=== PATIENT | female | born 1955 | race Caucasian/White ===

== ENCOUNTER 2018-04-24 15:17 | Observation (INO) | payer MEDICARE, MEDICAID ==
[2018-04-24] MEDS: NA PHOSPHATE/BIPHOS 133 ML ENEMA PR
[2018-04-24] MEDS ORDERED: ACETAMINOPHEN 325 MG TAB PO (15:30)
[2018-04-24 16:15] LABS: ADD MAN DIFF? NO
[2018-04-24 16:19] LABS: BASOPHILS % 0.6 % (0.0-2.0); EOSINOPHILS # 0.1 10^3/ul (0.0-0.5); EOSINOPHILS % 1.1 % (0.0-7.0); HEMATOCRIT 34.8 % (37.0-47.0); HEMOGLOBIN 11.5 g/dl (12.0-16.0); LYMPHOCYTES # 0.9 10^3/ul (0.8-2.9); MEAN CORPUSCULAR HEMOGLOBIN 32.9 pg (29.0-33.0); MEAN CORPUSCULAR VOLUME 99.4 fl (82.0-101.0); MONOCYTE # 0.6 10^3/ul (0.3-0.9); MONOCYTES % 8.6 % (0.0-11.0); NEUTROPHILS % 75.5 % (39.0-77.0); PLATELET COUNT 224 10^3/UL (140-415); RED CELL DISTRIBUTION WIDTH 13.8 % (11.5-14.5)
[2018-04-24 16:19] LABS: WHITE BLOOD COUNT 6.6 10^3/ul (4.8-10.8)
[2018-04-24 16:32] LABS: INR 1.11; PROTIME 14.5 Sec (11.9-14.9); PT RATIO 1.1
[2018-04-24] MEDS: morphine 4 MG/ML VIAL IV (16:34)
[2018-04-24] MEDS: ONDANSETRON 4 MG INJ IV (16:34)
[2018-04-24 16:35] LABS: LACTIC ACID 1.8 mmol/L (0.5-2.0)
[2018-04-24 16:36] LABS: ANION GAP 25 (8-16); BLOOD UREA NITROGEN 54 mg/dl (7-20); CALCIUM 7.9 mg/dl (8.4-10.2); CARBON DIOXIDE 32 mmol/L (21-31); CHLORIDE 90 mmol/L (97-110); CREATININE 7.95 mg/dl (0.44-1.00); GLUCOSE 169 mg/dl (70-220); POTASSIUM 3.8 mmol/L (3.5-5.1); SODIUM 143 mmol/L (135-144)
[2018-04-24 16:47] LABS: TROPONIN-I 0.097 ng/ml (0.000-0.120)
[2018-04-24 18:57] LABS: LACTIC ACID 1.4 mmol/L (0.5-2.0)
[2018-04-24 19:28] LABS: TROPONIN-I 0.092 ng/ml (0.000-0.120)
[2018-04-24] MEDS ORDERED: GLUCOSE GEL 15 GRAM TUBE PO ×2 (20:00)
[2018-04-24] MEDS ORDERED: GLUCAGON 1 MG INJ IM (20:00)
[2018-04-24] MEDS ORDERED: GLUCOSE GEL 15 GRAM TUBE BUCCAL (20:00)
[2018-04-24] MEDS ORDERED: DEXTROSE 50% 50 ML SYRINGE IV ×2 (20:00)
[2018-04-24] MEDS: LACTULOSE 30ML CUP GTB (20:37)
[2018-04-24] MEDS: INSULIN ASPART [NOVOLOG] 3 ML PEN SC (20:37)
[2018-04-24 23:21] LABS: LACTIC ACID 3.8 mmol/L (0.5-2.0)
[2018-04-25] MEDS: LACTULOSE 30ML CUP GTB (01:00)
[2018-04-25] MEDS ORDERED: ASPIRIN 81 MG TAB PO (02:00)
[2018-04-25] MEDS ORDERED: AMIODARONE 200 MG TAB PO ×2 (02:30→09:00)
[2018-04-25] MEDS: morphine 2 MG INJ IV ×3 (03:12→12:57)
[2018-04-25] MEDS: PANTOPRAZOLE (EC) 40 MG TAB PO (06:00)
[2018-04-25 07:07] LABS: ADD MAN DIFF? NO
[2018-04-25 07:15] LABS: BASOPHILS % 0.5 % (0.0-2.0); EOSINOPHILS # 0.1 10^3/ul (0.0-0.5); EOSINOPHILS % 1.2 % (0.0-7.0); HEMATOCRIT 32.8 % (37.0-47.0); HEMOGLOBIN 10.8 g/dl (12.0-16.0); LYMPHOCYTES # 1.9 10^3/ul (0.8-2.9); LYMPHOCYTES % 22.4 % (15.0-51.0); MEAN CORPUSCULAR HEMOGLOBIN 32.9 pg (29.0-33.0); MEAN CORPUSCULAR HGB CONC 32.9 g/dl (32.0-37.0); MEAN PLATELET VOLUME 10.4 fl (7.4-10.4); MONOCYTE # 1.2 10^3/ul (0.3-0.9); MONOCYTES % 13.7 % (0.0-11.0); NEUTROPHIL # 5.2 10^3/ul (1.6-7.5); PLATELET COUNT 220 10^3/UL (140-415); RED BLOOD COUNT 3.28 10^6/ul (4.20-5.40); RED CELL DISTRIBUTION WIDTH 13.9 % (11.5-14.5)
[2018-04-25 07:15] LABS: WHITE BLOOD COUNT 8.4 10^3/ul (4.8-10.8)
[2018-04-25] MEDS: INSULIN ASPART [NOVOLOG] 3 ML PEN SC ×4 (07:42→20:59)
[2018-04-25] MEDS: INSULIN GLARGINE [LANTus] (100 UNITS/ML) SYG SC ×2 (07:42→20:00)
[2018-04-25 07:45] LABS: ALANINE AMINOTRANSFERASE 30 IU/L (13-69); ALBUMIN 3.9 g/dl (3.3-4.9); ALKALINE PHOSPHATASE 53 IU/L (42-121); ANION GAP 23 (8-16); ASPARTATE AMINO TRANSFERASE 30 IU/L (15-46); BILIRUBIN,INDIRECT 0.1 mg/dl (0-1.1); BILIRUBIN,TOTAL 0.1 mg/dl (0.2-1.3); BLOOD UREA NITROGEN 53 mg/dl (7-20); CALCIUM 7.4 mg/dl (8.4-10.2); CARBON DIOXIDE 32 mmol/L (21-31); CHLORIDE 90 mmol/L (97-110); CREATININE 8.39 mg/dl (0.44-1.00); GLUCOSE 150 mg/dl (70-220); POTASSIUM 3.5 mmol/L (3.5-5.1); SODIUM 141 mmol/L (135-144); TOTAL PROTEIN 6.5 g/dl (6.1-8.1)
[2018-04-25 07:55] LABS: TROPONIN-I 0.101 ng/ml (0.000-0.120)
[2018-04-25] MEDS ORDERED: INSULIN GLARGINE [LANTus] (100 UNITS/ML) SYG SC (08:00)
[2018-04-25 08:13] LABS: HEPATITIS B SURFACE ANTIGEN NEGATIVE (NEGATIVE)
[2018-04-25 08:30] LABS: HEPATITIS B SURFACE ANTIBODY POSITIVE (NEGATIVE)
[2018-04-25] MEDS: LABETALOL 200 MG TAB PO ×2 (09:00→20:58)
[2018-04-25] MEDS: ASPIRIN 81 MG TAB PO (09:14)
[2018-04-25] MEDS: DULOXETINE 30 MG CAP DR PO (09:14)
[2018-04-25] MEDS: APIXABAN 5 MG TABLET PO ×2 (09:14→20:58)
[2018-04-25] MEDS: AMIODARONE 200 MG TAB PO (09:15)
[2018-04-25] MEDS: ONDANSETRON 4 MG INJ IV (09:23)
[2018-04-25 11:12] LABS: TROPONIN-I 0.087 ng/ml (0.000-0.120)
[2018-04-25] MEDS: [UNRECOGNIZED DRUG - REMARK] XX ×2 (12:43→20:59)
[2018-04-25] MEDS: LACTULOSE 30ML CUP PO ×5 (12:57→20:58)
[2018-04-25 13:57] LABS: CARCINOEMBRYONIC ANTIGEN 3.8 ng/ml (0.0-5.0)
[2018-04-25] MEDS ORDERED: ALBUMIN HUMAN 25% 100 ML IV (19:00)
[2018-04-25] MEDS: ISOSORBIDE DINITRATE 10 MG TAB PO (20:58)
[2018-04-25] MEDS: ATORVASTATIN 40 MG TAB PO (20:58)
[2018-04-25] MEDS ORDERED: BARIUM SULF 2% 450 ML BTL (BERRY SMOOTHIE) PO (23:00)
[2018-04-25] MEDS ORDERED: IOHEXOL 14.3 MG(I)/ML (ADULT) BTL PO (23:00)
[2018-04-25] MEDS ORDERED: IOHEXOL 10 MG(I)/ML (PED) BTL PO (23:00)
[2018-04-26] MEDS: LACTULOSE 30ML CUP PO ×11 (01:17→18:49)
[2018-04-26] MEDS: [UNRECOGNIZED DRUG - REMARK] XX ×3 (05:00→21:00)
[2018-04-26] MEDS: PANTOPRAZOLE (EC) 40 MG TAB PO (06:00)
[2018-04-26 06:44] LABS: ADD MAN DIFF? NO
[2018-04-26 07:00] LABS: WHITE BLOOD COUNT 6.6 10^3/ul (4.8-10.8)
[2018-04-26 07:00] LABS: BASOPHIL # 0.1 10^3/ul (0.0-0.1); BASOPHILS % 0.8 % (0.0-2.0); EOSINOPHILS # 0.2 10^3/ul (0.0-0.5); EOSINOPHILS % 2.9 % (0.0-7.0); HEMATOCRIT 38.4 % (37.0-47.0); HEMOGLOBIN 12.2 g/dl (12.0-16.0); LYMPHOCYTES # 1.1 10^3/ul (0.8-2.9); LYMPHOCYTES % 16.5 % (15.0-51.0); MEAN CORPUSCULAR HEMOGLOBIN 33.2 pg (29.0-33.0); MEAN CORPUSCULAR HGB CONC 31.8 g/dl (32.0-37.0); MEAN CORPUSCULAR VOLUME 104.3 fl (82.0-101.0); MEAN PLATELET VOLUME 10.1 fl (7.4-10.4); MONOCYTE # 0.9 10^3/ul (0.3-0.9); MONOCYTES % 14.2 % (0.0-11.0); NEUTROPHIL # 4.3 10^3/ul (1.6-7.5); NEUTROPHILS % 65.4 % (39.0-77.0); PLATELET COUNT 212 10^3/UL (140-415); RED BLOOD COUNT 3.68 10^6/ul (4.20-5.40); RED CELL DISTRIBUTION WIDTH 13.4 % (11.5-14.5)
[2018-04-26 07:37] LABS: ALANINE AMINOTRANSFERASE 25 IU/L (13-69); ALBUMIN 4.3 g/dl (3.3-4.9); ALBUMIN/GLOBULIN RATIO 1.26; ALKALINE PHOSPHATASE 57 IU/L (42-121); ANION GAP 20 (8-16); ASPARTATE AMINO TRANSFERASE 34 IU/L (15-46); BILIRUBIN,INDIRECT 0.2 mg/dl (0-1.1); BILIRUBIN,TOTAL 0.2 mg/dl (0.2-1.3); BLOOD UREA NITROGEN 23 mg/dl (7-20); CALCIUM 8.3 mg/dl (8.4-10.2); CARBON DIOXIDE 28 mmol/L (21-31); CHLORIDE 99 mmol/L (97-110); CK-MB 5.09 ng/ml (0.0-2.4); CREATININE 5.83 mg/dl (0.44-1.00); GLUCOSE 127 mg/dl (70-220); POTASSIUM 3.9 mmol/L (3.5-5.1); SODIUM 143 mmol/L (135-144); TOTAL PROTEIN 7.7 g/dl (6.1-8.1); TROPONIN-I 0.072 ng/ml (0.000-0.120)
[2018-04-26 07:48] LABS: CHOL/HDL RATIO 4.4 RATIO; CK INDEX 1.3; CREATINE KINASE 405 IU/L (23-200); HDL CHOLESTEROL 42 mg/dl (35-98); LDL CHOLESTEROL,CALCULATED 106 mg/dl; TRIGLYCERIDES 199 mg/dl (0-149)
[2018-04-26 07:48] LABS: CHOLESTEROL 188 mg/dl (100-200)
[2018-04-26] MEDS: INSULIN ASPART [NOVOLOG] 3 ML PEN SC ×4 (07:55→20:55)
[2018-04-26 08:07] LABS: PHOSPHORUS 7.8 mg/dl (2.5-4.9)
[2018-04-26] MEDS: AMIODARONE 200 MG TAB PO (09:00)
[2018-04-26] MEDS: ASPIRIN 81 MG TAB PO (09:30)
[2018-04-26] MEDS: LABETALOL 200 MG TAB PO ×2 (09:31→20:55)
[2018-04-26] MEDS: ISOSORBIDE DINITRATE 10 MG TAB PO ×3 (09:31→20:55)
[2018-04-26] MEDS: APIXABAN 5 MG TABLET PO ×2 (09:32→20:33)
[2018-04-26] MEDS: DULOXETINE 30 MG CAP DR PO (09:32)
[2018-04-26] MEDS: INSULIN GLARGINE [LANTus] (100 UNITS/ML) SYG SC ×2 (09:34→20:00)
[2018-04-26] MEDS: NA PHOSPHATE/BIPHOS 133 ML ENEMA PR (12:24)
[2018-04-26] MEDS ORDERED: PEG/ELECTROLYTES 4L BTL PO (13:00)
[2018-04-26 14:55] LABS: TROPONIN-I 0.063 ng/ml (0.000-0.120)
[2018-04-26] MEDS: MAGNESIUM CITRATE 300 ML BTL PO (14:58)
[2018-04-26] MEDS: POLYETHYLENE GLYCOL 17 GM PACKET PO ×3 (14:58→20:33)
[2018-04-26] MEDS: ATORVASTATIN 40 MG TAB PO (20:33)
[2018-04-26] MEDS: ONDANSETRON 4 MG INJ IV (20:39)
[2018-04-26] MEDS ORDERED: POLYETHYLENE GLYCOL 17 GM PACKET PO (21:00)
[2018-04-27] MEDS: POLYETHYLENE GLYCOL 17 GM PACKET PO (01:30)
[2018-04-27] MEDS: clonAZEPAM 0.5 MG TAB PO (02:13)
[2018-04-27] MEDS: morphine LIQ (10 MG/5 ML) CUP PO (02:13)
[2018-04-27] MEDS: [UNRECOGNIZED DRUG - REMARK] XX (05:00)
[2018-04-27] MEDS: PANTOPRAZOLE (EC) 40 MG TAB PO (05:37)
[2018-04-27 06:34] LABS: ADD MAN DIFF? NO
[2018-04-27 06:39] LABS: WHITE BLOOD COUNT 6.7 10^3/ul (4.8-10.8)
[2018-04-27 06:39] LABS: BASOPHILS % 0.6 % (0.0-2.0); EOSINOPHILS # 0.2 10^3/ul (0.0-0.5); EOSINOPHILS % 2.9 % (0.0-7.0); HEMATOCRIT 37.4 % (37.0-47.0); HEMOGLOBIN 11.7 g/dl (12.0-16.0); LYMPHOCYTES # 1.3 10^3/ul (0.8-2.9); LYMPHOCYTES % 19.4 % (15.0-51.0); MEAN CORPUSCULAR HEMOGLOBIN 32.3 pg (29.0-33.0); MEAN CORPUSCULAR HGB CONC 31.3 g/dl (32.0-37.0); MEAN CORPUSCULAR VOLUME 103.3 fl (82.0-101.0); MEAN PLATELET VOLUME 10.5 fl (7.4-10.4); MONOCYTES % 14.9 % (0.0-11.0); NEUTROPHIL # 4.1 10^3/ul (1.6-7.5); PLATELET COUNT 206 10^3/UL (140-415); RED BLOOD COUNT 3.62 10^6/ul (4.20-5.40); RED CELL DISTRIBUTION WIDTH 13.4 % (11.5-14.5)
[2018-04-27 07:00] LABS: ANION GAP 21 (8-16); BLOOD UREA NITROGEN 31 mg/dl (7-20); CALCIUM 8.1 mg/dl (8.4-10.2); CARBON DIOXIDE 29 mmol/L (21-31); CHLORIDE 96 mmol/L (97-110); CREATININE 6.94 mg/dl (0.44-1.00); GLUCOSE 102 mg/dl (70-220); PHOSPHORUS 9.5 mg/dl (2.5-4.9); POTASSIUM 3.7 mmol/L (3.5-5.1); SODIUM 142 mmol/L (135-144)
[2018-04-27 07:28] LABS: POTASSIUM 3.8 mmol/L (3.5-5.1)
[2018-04-27] MEDS: INSULIN ASPART [NOVOLOG] 3 ML PEN SC ×3 (07:55→20:59)
[2018-04-27] MEDS: INSULIN GLARGINE [LANTus] (100 UNITS/ML) SYG SC ×2 (08:00→20:54)
[2018-04-27] MEDS: AMIODARONE 200 MG TAB PO (09:00)
[2018-04-27] MEDS: ASPIRIN 81 MG TAB PO (09:00)
[2018-04-27] MEDS: ISOSORBIDE DINITRATE 10 MG TAB PO ×3 (09:00→21:00)
[2018-04-27] MEDS: APIXABAN 5 MG TABLET PO ×2 (09:00→20:49)
[2018-04-27] MEDS: LABETALOL 200 MG TAB PO ×2 (09:00→21:00)
[2018-04-27] MEDS: DULOXETINE 30 MG CAP DR PO (09:00)
[2018-04-27] MEDS: CALCIUM ACETATE 667 MG CAP PO ×2 (11:50→17:55)
[2018-04-27] MEDS: BARIUM SULF 2% 450 ML BTL (BERRY SMOOTHIE) PO (19:00)
[2018-04-27] MEDS: FENTAnyl 50 MCG/ML VIAL (20:00)
[2018-04-27] MEDS: PROPOFOL 20 ML (20:00)
[2018-04-27] MEDS: MIDAZOLAM 1 MG/ML 2 ML INJ (20:00)
[2018-04-27] MEDS: SOD CHLORIDE 0.9% 100 ML (20:05)
[2018-04-27] MEDS: IODIXANOL LOCM 100 ML BTL (20:05)
[2018-04-27] MEDS: ATORVASTATIN 40 MG TAB PO (20:49)
[2018-04-27 23:50] LABS: ALANINE AMINOTRANSFERASE 30 IU/L (13-69); ALBUMIN 4.7 g/dl (3.3-4.9); ALBUMIN/GLOBULIN RATIO 1.23; ALKALINE PHOSPHATASE 76 IU/L (42-121); ANION GAP 20 (8-16); ASPARTATE AMINO TRANSFERASE 35 IU/L (15-46); BILIRUBIN,INDIRECT 0.2 mg/dl (0-1.1); BILIRUBIN,TOTAL 0.2 mg/dl (0.2-1.3); BLOOD UREA NITROGEN 19 mg/dl (7-20); CALCIUM 9.1 mg/dl (8.4-10.2); CARBON DIOXIDE 29 mmol/L (21-31); CHLORIDE 93 mmol/L (97-110); CREATININE 5.32 mg/dl (0.44-1.00); GLUCOSE 287 mg/dl (70-220); POTASSIUM 3.7 mmol/L (3.5-5.1); SODIUM 138 mmol/L (135-144); TOTAL PROTEIN 8.5 g/dl (6.1-8.1)
[2018-04-28] MEDS: morphine LIQ (10 MG/5 ML) CUP PO (01:21)
[2018-04-28] MEDS: PANTOPRAZOLE (EC) 40 MG TAB PO (06:00)
[2018-04-28] MEDS: INSULIN ASPART [NOVOLOG] 3 ML PEN SC ×4 (07:55→20:58)
[2018-04-28] MEDS: ISOSORBIDE DINITRATE 10 MG TAB PO ×3 (09:00→21:00)
[2018-04-28] MEDS: LABETALOL 200 MG TAB PO ×2 (09:00→20:59)
[2018-04-28] MEDS: AMIODARONE 200 MG TAB PO (09:26)
[2018-04-28] MEDS: ASPIRIN 81 MG TAB PO (09:26)
[2018-04-28] MEDS: DULOXETINE 30 MG CAP DR PO (09:27)
[2018-04-28] MEDS: CALCIUM ACETATE 667 MG CAP PO ×3 (09:27→18:03)
[2018-04-28] MEDS: APIXABAN 5 MG TABLET PO ×2 (09:27→20:58)
[2018-04-28] MEDS: INSULIN GLARGINE [LANTus] (100 UNITS/ML) SYG SC ×2 (09:37→20:54)
[2018-04-28 11:27] LABS: ADD MAN DIFF? NO
[2018-04-28 11:30] LABS: BASOPHILS % 0.3 % (0.0-2.0); EOSINOPHILS # 0.2 10^3/ul (0.0-0.5); HEMATOCRIT 39.4 % (37.0-47.0); HEMOGLOBIN 12.6 g/dl (12.0-16.0); LYMPHOCYTES # 1.3 10^3/ul (0.8-2.9); LYMPHOCYTES % 13.7 % (15.0-51.0); MEAN CORPUSCULAR HEMOGLOBIN 32.5 pg (29.0-33.0); MEAN CORPUSCULAR VOLUME 101.5 fl (82.0-101.0); MEAN PLATELET VOLUME 10.8 fl (7.4-10.4); MONOCYTE # 1.2 10^3/ul (0.3-0.9); MONOCYTES % 12.5 % (0.0-11.0); NEUTROPHILS % 71.1 % (39.0-77.0); PLATELET COUNT 233 10^3/UL (140-415); RED BLOOD COUNT 3.88 10^6/ul (4.20-5.40); RED CELL DISTRIBUTION WIDTH 13.4 % (11.5-14.5)
[2018-04-28 11:30] LABS: WHITE BLOOD COUNT 9.8 10^3/ul (4.8-10.8)
[2018-04-28 11:53] LABS: ANION GAP 18 (8-16); BLOOD UREA NITROGEN 31 mg/dl (7-20); CALCIUM 8.8 mg/dl (8.4-10.2); CARBON DIOXIDE 29 mmol/L (21-31); CHLORIDE 96 mmol/L (97-110); CREATININE 6.64 mg/dl (0.44-1.00); GLUCOSE 199 mg/dl (70-220); POTASSIUM 4.1 mmol/L (3.5-5.1); SODIUM 139 mmol/L (135-144)
[2018-04-28] MEDS: ATORVASTATIN 40 MG TAB PO (20:58)
[2018-04-29] MEDS: morphine LIQ (10 MG/5 ML) CUP PO (02:25)
[2018-04-29] MEDS: PANTOPRAZOLE (EC) 40 MG TAB PO (06:33)
[2018-04-29] MEDS: INSULIN ASPART [NOVOLOG] 3 ML PEN SC ×3 (08:13→17:18)
[2018-04-29] MEDS: CALCIUM ACETATE 667 MG CAP PO ×3 (08:15→17:17)
[2018-04-29] MEDS: INSULIN GLARGINE [LANTus] (100 UNITS/ML) SYG SC (08:20)
[2018-04-29] MEDS: ISOSORBIDE DINITRATE 10 MG TAB PO ×2 (09:00→12:30)
[2018-04-29] MEDS: LABETALOL 200 MG TAB PO (09:00)
[2018-04-29] MEDS: APIXABAN 5 MG TABLET PO (09:06)
[2018-04-29] MEDS: ASPIRIN 81 MG TAB PO (09:06)
[2018-04-29] MEDS: AMIODARONE 200 MG TAB PO (09:06)
[2018-04-29] MEDS: DULOXETINE 30 MG CAP DR PO (09:07)
[2018-04-29] MEDS: DIPHENHYDRAMINE 50 MG INJ IV (12:29)
[2018-04-29 13:49] LABS: ADD MAN DIFF? NO
[2018-04-29 13:52] LABS: BASOPHILS % 0.4 % (0.0-2.0); EOSINOPHILS # 0.2 10^3/ul (0.0-0.5); EOSINOPHILS % 2.8 % (0.0-7.0); HEMATOCRIT 35.1 % (37.0-47.0); HEMOGLOBIN 11.4 g/dl (12.0-16.0); LYMPHOCYTES # 1.8 10^3/ul (0.8-2.9); LYMPHOCYTES % 22.4 % (15.0-51.0); MEAN CORPUSCULAR HEMOGLOBIN 32.9 pg (29.0-33.0); MEAN CORPUSCULAR HGB CONC 32.5 g/dl (32.0-37.0); MEAN CORPUSCULAR VOLUME 101.2 fl (82.0-101.0); MEAN PLATELET VOLUME 10.6 fl (7.4-10.4); MONOCYTE # 0.9 10^3/ul (0.3-0.9); MONOCYTES % 11.2 % (0.0-11.0); NEUTROPHIL # 5.1 10^3/ul (1.6-7.5); NEUTROPHILS % 62.8 % (39.0-77.0); PLATELET COUNT 211 10^3/UL (140-415); RED BLOOD COUNT 3.47 10^6/ul (4.20-5.40); RED CELL DISTRIBUTION WIDTH 13.3 % (11.5-14.5)
[2018-04-29 13:52] LABS: WHITE BLOOD COUNT 8.1 10^3/ul (4.8-10.8)
[2018-04-29 14:03] LABS: ANION GAP 19 (8-16); BLOOD UREA NITROGEN 48 mg/dl (7-20); CALCIUM 8.8 mg/dl (8.4-10.2); CARBON DIOXIDE 29 mmol/L (21-31); CHLORIDE 94 mmol/L (97-110); CREATININE 8.35 mg/dl (0.44-1.00); GLUCOSE 184 mg/dl (70-220); PHOSPHORUS 7.6 mg/dl (2.5-4.9); SODIUM 138 mmol/L (135-144)
== END 2018-04-29 17:55 | disposition home or self-care (01) ==
LOC: E/R 15:17 → TEL 15:26
PROVIDERS: Internal Medicine Hematology & Oncology
DX: R07.89 Other chest pain (principal); Z95.1 Presence of aortocoronary bypass graft; N18.6 End stage renal disease; Z99.2 Dependence on renal dialysis; E11.22 Type 2 diabetes mellitus with diabetic chronic kidney disease; J44.9 Chronic obstructive pulmonary disease, unspecified; H54.8 Legal blindness, as defined in USA; I25.119 Atherosclerotic heart disease of native coronary artery with unspecified angina pectoris; D63.1 Anemia in chronic kidney disease; K59.00 Constipation, unspecified; I13.2 Hypertensive heart and chronic kidney disease with heart failure and with stage 5 chronic kidney disease, or end stage renal disease; K63.5 Polyp of colon; K64.4 Residual hemorrhoidal skin tags; K64.8 Other hemorrhoids; K58.9 Irritable bowel syndrome, unspecified; K80.20 Calculus of gallbladder without cholecystitis without obstruction; E66.01 Morbid (severe) obesity due to excess calories; Z68.37 Body mass index [BMI] 37.0-37.9, adult; G89.29 Other chronic pain; I50.30 Unspecified diastolic (congestive) heart failure; I48.91 Unspecified atrial fibrillation
CPT/HCPCS: 36415; 71045; 71110; 71270; 74018; 74178; 80048; 80053; 80061; 82378; 82550; 82553; 82962; 83605; 84100; 84132; 84484; 85025; 85610; 85730; 86706; 87040; 87340; 88305; 90935; 93005; 93306; 93970; 99217; 99285-25; G0378

== ENCOUNTER 2018-08-04 02:31 | Inpatient (IN) | payer MEDICARE, MEDICAID ==
[2018-08-04 03:40] LABS: AADO2 Arterial 120.3 mmHg (7.0-24.0); Allen Test ACCEPTAB; Arterial Base Excess 4.8 mmol/L (-3.0-3); Arterial Blood Gas Oxygen Sat 51.1 mmHG (95.0-98.0); Arterial COHb 0.7 % (0.0-3.0); Arterial Fraction of Oxyhgb 50.7 % (93.0-99.0); Arterial HCO3 31.1 mmol/L (22.0-26.0); Arterial MetHb 0 % (0.0-1.5); Arterial pCO2 54.9 mmhg (35-45); MODE NASAL CANNULA; Site Right Radial
[2018-08-04 03:42] LABS: ADD MAN DIFF? NO
[2018-08-04 04:01] LABS: INR 1.09; PROTIME 14.3 Sec (11.9-14.9); PT RATIO 1.1
[2018-08-04 04:02] LABS: PARTIAL THROMBOPLASTIN TIME 35.7 Sec (23.0-35.0)
[2018-08-04 04:04] LABS: ALANINE AMINOTRANSFERASE 27 IU/L (13-69); ALBUMIN 4.4 g/dl (3.3-4.9); ALBUMIN/GLOBULIN RATIO 1.57; ALKALINE PHOSPHATASE 75 IU/L (42-121); ANION GAP 14 (5-13); ASPARTATE AMINO TRANSFERASE 19 IU/L (15-46); BILIRUBIN,INDIRECT 0.2 mg/dl (0-1.1); BILIRUBIN,TOTAL 0.2 mg/dl (0.2-1.3); BLOOD UREA NITROGEN 45 mg/dl (7-20); CALCIUM 8.9 mg/dl (8.4-10.2); CARBON DIOXIDE 31 mmol/L (21-31); CHLORIDE 99 mmol/L (97-110); CREATININE 4.67 mg/dl (0.44-1.00); Estimated GFR 9 mL/min (>60); GLUCOSE 186 mg/dl (70-220); POTASSIUM 4.5 mmol/L (3.5-5.1); SODIUM 144 mmol/L (135-144); TOTAL PROTEIN 7.2 g/dl (6.1-8.1)
[2018-08-04 04:12] LABS: WHITE BLOOD COUNT 9.4 10^3/ul (4.8-10.8)
[2018-08-04 04:12] LABS: BASOPHILS % 0.4 % (0.0-2.0); EOSINOPHILS # 0.1 10^3/ul (0.0-0.5); EOSINOPHILS % 1.2 % (0.0-7.0); HEMOGLOBIN 10.6 g/dl (12.0-16.0); LYMPHOCYTES # 0.8 10^3/ul (0.8-2.9); LYMPHOCYTES % 8.9 % (15.0-51.0); MEAN CORPUSCULAR HGB CONC 32.1 g/dl (32.0-37.0); MEAN CORPUSCULAR VOLUME 105.8 fl (82.0-101.0); MONOCYTE # 0.6 10^3/ul (0.3-0.9); MONOCYTES % 6.8 % (0.0-11.0); NEUTROPHIL # 7.6 10^3/ul (1.6-7.5); NEUTROPHILS % 81.1 % (39.0-77.0); PLATELET COUNT 221 10^3/UL (140-415); RED BLOOD COUNT 3.12 10^6/ul (4.20-5.40); RED CELL DISTRIBUTION WIDTH 14.2 % (11.5-14.5)
[2018-08-04 04:15] LABS: TROPONIN-I 0.019 ng/ml (0.000-0.120)
[2018-08-04] MEDS: ONDANSETRON 4 MG INJ IV (04:30)
[2018-08-04] MEDS: morphine 2 MG INJ IV (04:30)
[2018-08-04] MEDS ORDERED: DEXTROSE 50% 50 ML SYRINGE IV ×2 (09:30)
[2018-08-04] MEDS ORDERED: GLUCOSE GEL 15 GRAM TUBE PO ×2 (09:30)
[2018-08-04] MEDS ORDERED: GLUCAGON 1 MG INJ IM (09:30)
[2018-08-04] MEDS ORDERED: LORAZEPAM 1 MG TAB PO (09:30)
[2018-08-04] MEDS ORDERED: clonAZEPAM 0.5 MG TAB PO (09:30)
[2018-08-04] MEDS ORDERED: GLUCOSE GEL 15 GRAM TUBE BUCCAL (09:30)
[2018-08-04] MEDS: morphine 4 MG/ML VIAL IV ×3 (09:57→23:09)
[2018-08-04] MEDS: NITROGLYCERIN 2% 1 GM OINT PKT TD (09:57)
[2018-08-04] MEDS: APIXABAN 5 MG TABLET PO ×2 (09:58→20:15)
[2018-08-04 10:44] LABS: CHOL/HDL RATIO 4.5 RATIO; HDL CHOLESTEROL 39 mg/dl (35-98); LDL CHOLESTEROL,CALCULATED 99 mg/dl; TRIGLYCERIDES 191 mg/dl (0-149)
[2018-08-04 10:44] LABS: CHOLESTEROL 176 mg/dl (100-200)
[2018-08-04 10:56] LABS: HEMOGLOBIN A1C 6.7 % (0-5.9)
[2018-08-04 11:30] LABS: HEPATITIS B SURFACE ANTIGEN NEGATIVE (NEGATIVE)
[2018-08-04 11:47] LABS: HEPATITIS B SURFACE ANTIBODY POSITIVE (NEGATIVE)
[2018-08-04] MEDS: INSULIN ASPART [NOVOLOG] 3 ML PEN SC ×3 (11:50→20:27)
[2018-08-04] MEDS ORDERED: NITROGLYCERIN (SL) 0.4 MG TAB SL (13:30)
[2018-08-04 19:38] LABS: TROPONIN-I 0.037 ng/ml (0.000-0.120)
[2018-08-04] MEDS: VALACYCLOVIR 500 MG TAB PO (20:14)
[2018-08-04] MEDS: ISOSORBIDE DINITRATE 20 MG TAB PO ×2 (20:16→21:00)
[2018-08-04] MEDS: INSULIN GLARGINE [LANTus] (100 UNITS/ML) SYG SC (20:27)
[2018-08-04] MEDS ORDERED: VALACYCLOVIR 500 MG TAB PO (21:00)
[2018-08-04] MEDS: clonAZEPAM 0.5 MG TAB PO (23:09)
[2018-08-05] MEDS: ACCU-CHEK XX (02:00)
[2018-08-05 03:17] LABS: CHOLESTEROL 185 mg/dl (100-200)
[2018-08-05 03:17] LABS: CHOL/HDL RATIO 4.6 RATIO; HDL CHOLESTEROL 40 mg/dl (35-98); LDL CHOLESTEROL,CALCULATED 112 mg/dl; TRIGLYCERIDES 166 mg/dl (0-149)
[2018-08-05 03:29] LABS: TROPONIN-I 0.044 ng/ml (0.000-0.120)
[2018-08-05] MEDS: morphine 4 MG/ML VIAL IV ×2 (05:03→14:41)
[2018-08-05] MEDS: INSULIN ASPART [NOVOLOG] 3 ML PEN SC ×4 (07:55→21:00)
[2018-08-05] MEDS: ASPIRIN (EC) 81 MG TAB PO (08:58)
[2018-08-05] MEDS: APIXABAN 5 MG TABLET PO ×2 (08:58→21:45)
[2018-08-05] MEDS: AMLODIPINE 5 MG TAB PO (08:58)
[2018-08-05] MEDS: ISOSORBIDE DINITRATE 20 MG TAB PO ×3 (08:59→22:04)
[2018-08-05] MEDS: LIDOCAINE 5% PATCH TD (08:59)
[2018-08-05] MEDS: INSULIN GLARGINE [LANTus] (100 UNITS/ML) SYG SC ×2 (09:09→21:59)
[2018-08-05 11:11] LABS: TROPONIN-I 0.035 ng/ml (0.000-0.120)
[2018-08-05] MEDS: clonAZEPAM 0.5 MG TAB PO (21:00)
[2018-08-05] MEDS: VALACYCLOVIR 500 MG TAB PO (22:04)
[2018-08-06] MEDS: DIPHENHYDRAMINE 50 MG INJ IV ×3 (00:48→20:57)
[2018-08-06] MEDS: morphine 4 MG/ML VIAL IV ×2 (00:48→06:44)
[2018-08-06] MEDS: ACCU-CHEK XX (02:00)
[2018-08-06] MEDS: ISOSORBIDE DINITRATE 20 MG TAB PO ×3 (08:34→20:09)
[2018-08-06] MEDS: AMLODIPINE 5 MG TAB PO ×2 (08:58→09:07)
[2018-08-06] MEDS: LIDOCAINE 5% PATCH TD (09:00)
[2018-08-06] MEDS: APIXABAN 5 MG TABLET PO ×2 (09:10→20:08)
[2018-08-06] MEDS: ASPIRIN (EC) 81 MG TAB PO (09:11)
[2018-08-06] MEDS: INSULIN GLARGINE [LANTus] (100 UNITS/ML) SYG SC ×2 (09:13→20:21)
[2018-08-06] MEDS: INSULIN ASPART [NOVOLOG] 3 ML PEN SC ×4 (09:14→20:20)
[2018-08-06] MEDS: MULTIVIT/CA CARB/B CMPLX/FA TAB PO (09:30)
[2018-08-06] MEDS: VALACYCLOVIR 500 MG TAB PO (20:08)
[2018-08-06] MEDS: clonAZEPAM 0.5 MG TAB PO (21:00)
[2018-08-07] MEDS: ACCU-CHEK XX (02:00)
[2018-08-07] MEDS: DIPHENHYDRAMINE 50 MG INJ IV ×4 (04:58→23:07)
[2018-08-07] MEDS: morphine 4 MG/ML VIAL IV ×2 (04:58→23:19)
[2018-08-07 06:18] LABS: ADD MAN DIFF? NO
[2018-08-07 06:27] LABS: WHITE BLOOD COUNT 6.6 10^3/ul (4.8-10.8)
[2018-08-07 06:27] LABS: BASOPHIL # 0.1 10^3/ul (0.0-0.1); BASOPHILS % 0.8 % (0.0-2.0); EOSINOPHILS # 0.2 10^3/ul (0.0-0.5); EOSINOPHILS % 2.7 % (0.0-7.0); HEMOGLOBIN 10.1 g/dl (12.0-16.0); LYMPHOCYTES # 1.3 10^3/ul (0.8-2.9); LYMPHOCYTES % 19.9 % (15.0-51.0); MEAN CORPUSCULAR HEMOGLOBIN 33.1 pg (29.0-33.0); MEAN CORPUSCULAR HGB CONC 31.6 g/dl (32.0-37.0); MEAN CORPUSCULAR VOLUME 104.9 fl (82.0-101.0); MEAN PLATELET VOLUME 10.1 fl (7.4-10.4); MONOCYTE # 0.7 10^3/ul (0.3-0.9); MONOCYTES % 11.2 % (0.0-11.0); NEUTROPHIL # 4.3 10^3/ul (1.6-7.5); NEUTROPHILS % 65.1 % (39.0-77.0); PLATELET COUNT 193 10^3/UL (140-415); RED BLOOD COUNT 3.05 10^6/ul (4.20-5.40); RED CELL DISTRIBUTION WIDTH 13.6 % (11.5-14.5)
[2018-08-07 06:51] LABS: ALANINE AMINOTRANSFERASE 22 IU/L (13-69); ALBUMIN 4.3 g/dl (3.3-4.9); ALBUMIN/GLOBULIN RATIO 1.79; ALKALINE PHOSPHATASE 60 IU/L (42-121); ANION GAP 16 (5-13); ASPARTATE AMINO TRANSFERASE 19 IU/L (15-46); BILIRUBIN,INDIRECT 0.1 mg/dl (0-1.1); BILIRUBIN,TOTAL 0.1 mg/dl (0.2-1.3); BLOOD UREA NITROGEN 58 mg/dl (7-20); CALCIUM 8.4 mg/dl (8.4-10.2); CARBON DIOXIDE 26 mmol/L (21-31); CHLORIDE 99 mmol/L (97-110); CREATININE 6.69 mg/dl (0.44-1.00); Estimated GFR 6 mL/min (>60); GLUCOSE 179 mg/dl (70-220); POTASSIUM 4.9 mmol/L (3.5-5.1); SODIUM 141 mmol/L (135-144); TOTAL PROTEIN 6.7 g/dl (6.1-8.1)
[2018-08-07] MEDS: INSULIN ASPART [NOVOLOG] 3 ML PEN SC ×4 (08:14→20:51)
[2018-08-07] MEDS: INSULIN GLARGINE [LANTus] (100 UNITS/ML) SYG SC ×2 (08:53→20:49)
[2018-08-07] MEDS: AMLODIPINE 5 MG TAB PO (09:00)
[2018-08-07] MEDS: LIDOCAINE 5% PATCH TD (09:00)
[2018-08-07] MEDS: ISOSORBIDE DINITRATE 20 MG TAB PO ×3 (09:00→20:40)
[2018-08-07] MEDS: APIXABAN 5 MG TABLET PO ×2 (10:00→20:40)
[2018-08-07] MEDS: MULTIVIT/CA CARB/B CMPLX/FA TAB PO (10:00)
[2018-08-07] MEDS: ASPIRIN (EC) 81 MG TAB PO (10:00)
[2018-08-07] MEDS: VALACYCLOVIR 500 MG TAB PO (20:39)
[2018-08-07] MEDS: clonAZEPAM 0.5 MG TAB PO ×2 (21:00→23:07)
[2018-08-08] MEDS: ACCU-CHEK XX (02:00)
[2018-08-08] MEDS: morphine 4 MG/ML VIAL IV (06:50)
[2018-08-08] MEDS ORDERED: clonAZEPAM 0.5 MG TAB PO (08:30)
[2018-08-08] MEDS: ISOSORBIDE DINITRATE 20 MG TAB PO ×3 (08:31→21:00)
[2018-08-08] MEDS: APIXABAN 5 MG TABLET PO ×2 (08:31→22:02)
[2018-08-08] MEDS: AMLODIPINE 5 MG TAB PO (08:32)
[2018-08-08] MEDS: ASPIRIN (EC) 81 MG TAB PO (08:32)
[2018-08-08] MEDS: LIDOCAINE 5% PATCH TD (08:32)
[2018-08-08] MEDS: MULTIVIT/CA CARB/B CMPLX/FA TAB PO (08:32)
[2018-08-08] MEDS: INSULIN ASPART [NOVOLOG] 3 ML PEN SC ×4 (08:38→21:00)
[2018-08-08] MEDS: INSULIN GLARGINE [LANTus] (100 UNITS/ML) SYG SC ×2 (08:38→21:45)
[2018-08-08] MEDS: DIPHENHYDRAMINE 50 MG INJ IV (19:12)
[2018-08-08] MEDS: VALACYCLOVIR 500 MG TAB PO (21:00)
[2018-08-09] MEDS: ACCU-CHEK XX (02:00)
[2018-08-09] MEDS: morphine 4 MG/ML VIAL IV ×2 (02:26→10:40)
[2018-08-09] MEDS: DIPHENHYDRAMINE 50 MG INJ IV ×2 (02:26→10:40)
[2018-08-09] MEDS: INSULIN ASPART [NOVOLOG] 3 ML PEN SC ×4 (07:42→20:55)
[2018-08-09] MEDS: MULTIVIT/CA CARB/B CMPLX/FA TAB PO (08:11)
[2018-08-09] MEDS: ASPIRIN (EC) 81 MG TAB PO (08:12)
[2018-08-09] MEDS: APIXABAN 5 MG TABLET PO ×2 (08:12→20:43)
[2018-08-09] MEDS: ISOSORBIDE DINITRATE 20 MG TAB PO ×3 (08:13→20:46)
[2018-08-09] MEDS: AMLODIPINE 5 MG TAB PO (08:14)
[2018-08-09] MEDS: LIDOCAINE 5% PATCH TD (08:15)
[2018-08-09] MEDS: INSULIN GLARGINE [LANTus] (100 UNITS/ML) SYG SC ×2 (08:18→20:55)
[2018-08-09] MEDS: IBUPROFEN 600 MG TAB PO (14:37)
[2018-08-09] MEDS: VALACYCLOVIR 500 MG TAB PO (20:45)
[2018-08-10] MEDS: DIPHENHYDRAMINE 50 MG INJ IV (01:16)
[2018-08-10] MEDS: morphine 4 MG/ML VIAL IV ×2 (01:16→07:12)
[2018-08-10] MEDS: ACCU-CHEK XX (02:00)
[2018-08-10] MEDS: ACETAMINOPHEN 325 MG TAB PO (04:54)
[2018-08-10] MEDS: INSULIN ASPART [NOVOLOG] 3 ML PEN SC ×9 (07:55→21:00)
[2018-08-10] MEDS ORDERED: CYCLOBENZAPRINE 10 MG TAB PO (08:00)
[2018-08-10] MEDS: INSULIN GLARGINE [LANTus] (100 UNITS/ML) SYG SC ×3 (08:21→21:55)
[2018-08-10] MEDS: LIDOCAINE 5% PATCH TD (08:21)
[2018-08-10] MEDS: ISOSORBIDE DINITRATE 20 MG TAB PO ×4 (08:21→21:00)
[2018-08-10] MEDS: MULTIVIT/CA CARB/B CMPLX/FA TAB PO ×2 (08:21→09:12)
[2018-08-10] MEDS: ASPIRIN (EC) 81 MG TAB PO ×2 (08:21→09:16)
[2018-08-10] MEDS: AMLODIPINE 5 MG TAB PO ×2 (08:21→09:41)
[2018-08-10] MEDS: APIXABAN 5 MG TABLET PO ×3 (08:21→21:00)
[2018-08-10 12:22] LABS: ADD MAN DIFF? NO
[2018-08-10 12:42] LABS: WHITE BLOOD COUNT 6.6 10^3/ul (4.8-10.8)
[2018-08-10 12:42] LABS: BASOPHILS % 0.6 % (0.0-2.0); EOSINOPHILS # 0.2 10^3/ul (0.0-0.5); EOSINOPHILS % 3.3 % (0.0-7.0); HEMATOCRIT 37.4 % (37.0-47.0); HEMOGLOBIN 12.3 g/dl (12.0-16.0); LYMPHOCYTES # 1.4 10^3/ul (0.8-2.9); LYMPHOCYTES % 21.4 % (15.0-51.0); MEAN CORPUSCULAR HEMOGLOBIN 33.4 pg (29.0-33.0); MEAN CORPUSCULAR HGB CONC 32.9 g/dl (32.0-37.0); MEAN CORPUSCULAR VOLUME 101.6 fl (82.0-101.0); MEAN PLATELET VOLUME 10.6 fl (7.4-10.4); MONOCYTE # 1.1 10^3/ul (0.3-0.9); NEUTROPHIL # 3.8 10^3/ul (1.6-7.5); NEUTROPHILS % 57.4 % (39.0-77.0); PLATELET COUNT 222 10^3/UL (140-415); RED BLOOD COUNT 3.68 10^6/ul (4.20-5.40); RED CELL DISTRIBUTION WIDTH 13.4 % (11.5-14.5)
[2018-08-10 12:44] LABS: ANION GAP 16 (5-13); BLOOD UREA NITROGEN 41 mg/dl (7-20); CALCIUM 9.5 mg/dl (8.4-10.2); CARBON DIOXIDE 25 mmol/L (21-31); CHLORIDE 100 mmol/L (97-110); CREATININE 6.05 mg/dl (0.44-1.00); Estimated GFR 7 mL/min (>60); GLUCOSE 170 mg/dl (70-220); PHOSPHORUS 7.1 mg/dl (2.5-4.9); POTASSIUM 4.6 mmol/L (3.5-5.1); SODIUM 141 mmol/L (135-144)
[2018-08-10] MEDS: ONDANSETRON 4 MG INJ IV (13:24)
[2018-08-10] MEDS: VALACYCLOVIR 500 MG TAB PO (21:34)
[2018-08-11] MEDS: ACCU-CHEK XX (02:00)
[2018-08-11] MEDS: INSULIN ASPART [NOVOLOG] 3 ML PEN SC ×7 (07:55→21:00)
[2018-08-11] MEDS: ALBUMIN HUMAN 25% 100 ML IV (08:08)
[2018-08-11] MEDS: ISOSORBIDE DINITRATE 20 MG TAB PO ×3 (08:32→21:00)
[2018-08-11] MEDS: INSULIN GLARGINE [LANTus] (100 UNITS/ML) SYG SC ×3 (08:33→22:04)
[2018-08-11] MEDS: AMLODIPINE 5 MG TAB PO (09:00)
[2018-08-11] MEDS: LIDOCAINE 5% PATCH TD (09:24)
[2018-08-11] MEDS: CALCIUM ACETATE 667 MG CAP PO ×2 (11:45→17:22)
[2018-08-11] MEDS: ASPIRIN (EC) 81 MG TAB PO (11:45)
[2018-08-11] MEDS: MULTIVIT/CA CARB/B CMPLX/FA TAB PO (11:45)
[2018-08-11] MEDS: APIXABAN 5 MG TABLET PO ×2 (11:46→21:52)
[2018-08-11] MEDS: morphine 4 MG/ML VIAL IV (13:27)
[2018-08-11] MEDS: DIPHENHYDRAMINE 50 MG INJ IV (13:27)
[2018-08-11] MEDS ORDERED: EPOETIN 10000 UNITS/1 ML INJ (ESRD) SC (17:00)
[2018-08-11] MEDS: VALACYCLOVIR 500 MG TAB PO (21:51)
[2018-08-12] MEDS: ACCU-CHEK XX (01:48)
[2018-08-12] MEDS: DIPHENHYDRAMINE 50 MG INJ IV (01:52)
[2018-08-12] MEDS: morphine 4 MG/ML VIAL IV (01:52)
[2018-08-12] MEDS: INSULIN ASPART [NOVOLOG] 3 ML PEN SC ×7 (07:49→21:00)
[2018-08-12] MEDS: ASPIRIN (EC) 81 MG TAB PO (08:50)
[2018-08-12] MEDS: APIXABAN 5 MG TABLET PO ×2 (08:50→20:57)
[2018-08-12] MEDS: MULTIVIT/CA CARB/B CMPLX/FA TAB PO (08:51)
[2018-08-12] MEDS: ISOSORBIDE DINITRATE 20 MG TAB PO ×3 (08:51→21:00)
[2018-08-12] MEDS: CALCIUM ACETATE 667 MG CAP PO ×3 (08:51→16:55)
[2018-08-12] MEDS: AMLODIPINE 5 MG TAB PO (08:51)
[2018-08-12] MEDS: LIDOCAINE 5% PATCH TD (08:52)
[2018-08-12] MEDS: INSULIN GLARGINE [LANTus] (100 UNITS/ML) SYG SC ×2 (09:07→20:59)
[2018-08-12] MEDS ORDERED: POLYETHYLENE GLYCOL 17 GM PACKET PO (09:30)
[2018-08-12] MEDS ORDERED: BISACODYL 10 MG SUPP PR (09:30)
[2018-08-12] MEDS: BISACODYL (EC) 5 MG TAB PO (11:26)
[2018-08-12] MEDS: NA PHOSPHATE/BIPHOS 133 ML ENEMA PR (16:49)
[2018-08-12] MEDS: VALACYCLOVIR 500 MG TAB PO (21:00)
[2018-08-13] MEDS: DIPHENHYDRAMINE 50 MG INJ IV ×2 (00:01→13:31)
[2018-08-13] MEDS: morphine 4 MG/ML VIAL IV ×2 (00:01→13:26)
[2018-08-13] MEDS: ACCU-CHEK XX (01:43)
[2018-08-13] MEDS: INSULIN ASPART [NOVOLOG] 3 ML PEN SC ×6 (07:55→17:23)
[2018-08-13] MEDS: MULTIVIT/CA CARB/B CMPLX/FA TAB PO (08:29)
[2018-08-13] MEDS: CALCIUM ACETATE 667 MG CAP PO ×3 (08:29→18:07)
[2018-08-13] MEDS: ASPIRIN (EC) 81 MG TAB PO (08:30)
[2018-08-13] MEDS: APIXABAN 5 MG TABLET PO (08:30)
[2018-08-13] MEDS: INSULIN GLARGINE [LANTus] (100 UNITS/ML) SYG SC (08:39)
[2018-08-13] MEDS: LIDOCAINE 5% PATCH TD (09:00)
[2018-08-13] MEDS: AMLODIPINE 5 MG TAB PO (09:00)
[2018-08-13] MEDS: ISOSORBIDE DINITRATE 20 MG TAB PO ×2 (09:00→13:00)
[2018-08-13 13:55] LABS: ADD MAN DIFF? NO
[2018-08-13 13:56] LABS: BASOPHILS % 0.2 % (0.0-2.0); EOSINOPHILS # 0.2 10^3/ul (0.0-0.5); EOSINOPHILS % 3.2 % (0.0-7.0); HEMATOCRIT 28.7 % (37.0-47.0); HEMOGLOBIN 9.3 g/dl (12.0-16.0); LYMPHOCYTES # 1.4 10^3/ul (0.8-2.9); LYMPHOCYTES % 25.9 % (15.0-51.0); MEAN CORPUSCULAR HEMOGLOBIN 33.6 pg (29.0-33.0); MEAN CORPUSCULAR HGB CONC 32.4 g/dl (32.0-37.0); MEAN CORPUSCULAR VOLUME 103.6 fl (82.0-101.0); MEAN PLATELET VOLUME 10.2 fl (7.4-10.4); MONOCYTE # 0.6 10^3/ul (0.3-0.9); MONOCYTES % 10.6 % (0.0-11.0); NEUTROPHIL # 3.3 10^3/ul (1.6-7.5); NEUTROPHILS % 59.9 % (39.0-77.0); PLATELET COUNT 174 10^3/UL (140-415); RED BLOOD COUNT 2.77 10^6/ul (4.20-5.40); RED CELL DISTRIBUTION WIDTH 13.3 % (11.5-14.5)
[2018-08-13 13:56] LABS: WHITE BLOOD COUNT 5.6 10^3/ul (4.8-10.8)
[2018-08-13 14:14] LABS: ANION GAP 14 (5-13); BLOOD UREA NITROGEN 59 mg/dl (7-20); CALCIUM 8.5 mg/dl (8.4-10.2); CARBON DIOXIDE 26 mmol/L (21-31); CHLORIDE 100 mmol/L (97-110); CREATININE 6.79 mg/dl (0.44-1.00); Estimated GFR 6 mL/min (>60); GLUCOSE 154 mg/dl (70-220); PHOSPHORUS 6.7 mg/dl (2.5-4.9); SODIUM 140 mmol/L (135-144)
== END 2018-08-13 19:25 | disposition home or self-care (01) | DRG 291 ==
LOC: TEL 08-10 10:15 → E/R 02:31 → TEL 04:48
PROC: 5A1D70Z Performance of Urinary Filtration, Intermittent, Less than 6 Hours Per Day (ICD-10-PCS; principal; 2018-08-04)
PROC: 4A033R1 Measurement of Arterial Saturation, Peripheral, Percutaneous Approach (ICD-10-PCS; 2018-08-04)
DX: I13.2 Hypertensive heart and chronic kidney disease with heart failure and with stage 5 chronic kidney disease, or end stage renal disease (principal); N18.6 End stage renal disease; I50.23 Acute on chronic systolic (congestive) heart failure; J96.21 Acute and chronic respiratory failure with hypoxia; E11.22 Type 2 diabetes mellitus with diabetic chronic kidney disease; Z99.2 Dependence on renal dialysis; I25.10 Atherosclerotic heart disease of native coronary artery without angina pectoris; D63.1 Anemia in chronic kidney disease; E78.5 Hyperlipidemia, unspecified; F32.9 Major depressive disorder, single episode, unspecified; J44.9 Chronic obstructive pulmonary disease, unspecified; G47.33 Obstructive sleep apnea (adult) (pediatric); E66.9 Obesity, unspecified; Z68.36 Body mass index [BMI] 36.0-36.9, adult; F41.9 Anxiety disorder, unspecified; I42.9 Cardiomyopathy, unspecified; R07.89 Other chest pain; I48.0 Paroxysmal atrial fibrillation; G89.29 Other chronic pain; H54.8 Legal blindness, as defined in USA; M79.672 Pain in left foot; M79.671 Pain in right foot; D53.9 Nutritional anemia, unspecified; E11.40 Type 2 diabetes mellitus with diabetic neuropathy, unspecified; Z79.4 Long term (current) use of insulin; Z88.2 Allergy status to sulfonamides; Z79.82 Long term (current) use of aspirin; Z95.1 Presence of aortocoronary bypass graft; Z95.5 Presence of coronary angioplasty implant and graft; Z90.710 Acquired absence of both cervix and uterus
CPT/HCPCS: 36415; 36600; 71045; 73630; 73630-LT; 80048; 80053; 80061; 82803; 82962; 83036; 84100; 84443; 84484; 85025; 85610; 85730; 86706; 87340; 90935; 93005; 96374; 96375; 99291-25